=== PATIENT | female | born 1990 | race Two or more races ===

== ENCOUNTER 2019-03-22 19:27 | Emergency (ER) | payer OTHER ==
[2019-03-22] MEDS ORDERED: HYDROCODONE/ACETAMINOPHEN 5-325 MG TABLET PO ONE (20:07)
--- NOTE | 2019-03-22 20:08 | ER Document Report ---
ED Medical Screen (RME) - General Chief Complaint: Other Stated Complaint: BODY PAIN Time Seen by Provider: 03/22/19 19:59 Notes: Patient is a 28-year-old female with a history of multiple sclerosis who presents to the emergency department with a chief complaint of an MS flare. Patient reports having pain to the right side of her body. Patient states she has been off her MS injection since November as she did lose her insurance. Patient states she was also on hydrocodone and other medications for her discomfort but has been out of them as well. Patient denies fever. 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 Patient also reports a history of fibromyalgia. Patient denies nausea, vomiting or diarrhea. Patient reports she has had the MS flare for about 2 to 3 days. Patient reports she has been taking ibuprofen for this with minimal relief. TRAVEL OUTSIDE OF THE [place] IN LAST 30 DAYS: No - Related Data Allergies/Adverse Reactions: Penicillins Adverse Reaction (Verified 03/22/19 19:34) Physical Exam - Vital signs Vitals: Temp Pulse Resp BP Pulse Ox 98.1 F 68 18 127/69 H 98 03/22/19 19:37 03/22/19 19:37 03/22/19 19:37 03/22/19 19:37 03/22/19 19:37 Interpretation: Normal Course - Re-evaluation Re-evalutation: 03/22/19 20:07 I have greeted and performed a rapid initial assessment of this patient. A comprehensive ED assessment and evaluation of the patient, analysis of test results and completion of the medical decision making process will be conducted by additional ED providers. - Vital Signs Vital signs: Temp Pulse Resp BP Pulse Ox 98.1 F 68 18 127/69 H 98 03/22/19 19:37 03/22/19 19:37 03/22/19 19:37 03/22/19 19:37 03/22/19 19:37
[2019-03-22 20:34] LABS: ABSOLUTE EOSINOPHILS # (AUTO) 0.1 10^3/uL (0.0-0.6); ABSOLUTE LYMPHOCYTES (AUTO) 2.4 10^3/uL (0.5-4.7); ABSOLUTE MONOCYTES (AUTO) 0.5 10^3/uL (0.1-1.4); ABSOLUTE NEUT (AUTO) 3.4 10^3/uL (1.7-8.2); BASOPHILS % (AUTO) 0.3 % (0-2); EOSINOPHILS % (AUTO) 2.3 % (0-6); HEMATOCRIT 38.1 % (36.0-47.0); HEMOGLOBIN 13.1 g/dL (12.0-15.5); LYMPHOCYTES % (AUTO) 37.2 % (13-45); MEAN CORPUSCULAR HEMOGLOBIN 31.1 pg (27.0-33.4); MEAN CORPUSCULAR HGB CONC 34.3 g/dL (32.0-36.0); MEAN CORPUSCULAR VOLUME 91 fl (80-97); MONOCYTES % (AUTO) 7.1 % (3-13); PLATELET COUNT 176 10^3/uL (150-450); RED CELL DISTRIBUTION WIDTH 14.1 % (11.5-14.0); SEGMENTED NEUTROPHILS % (AUTO) 53.1 % (42-78); TOTAL CELLS COUNTED % (AUTO) 100 %; WHITE BLOOD COUNT 6.3 10^3/uL (4.0-10.5)
[2019-03-22 20:39] LABS: APPEARANCE,URINE SLIGHTLY-CLOUDY; BILIRUBIN,URINE NEGATIVE (NEGATIVE); COLOR,URINE YELLOW; GLUCOSE, URINE NEGATIVE (NEGATIVE); KETONES,URINE NEGATIVE (NEGATIVE); LEUKOCYTE ESTERASE,URINE NEGATIVE (NEGATIVE); NITRITE,URINE NEGATIVE (NEGATIVE); PROTEIN,URINE NEGATIVE (NEGATIVE); URINE SPECIFIC GRAVITY 1.017; UROBILINOGEN,URINE NEGATIVE mg/dL (<2.0)
[2019-03-22 20:48] LABS: ALBUMIN 4.7 g/dL (3.5-5.0); ALKALINE PHOSPHATASE 52 U/L (38-126); ANION GAP 8 (5-19); ASPARTATE AMINO TRANSFERASE 19 U/L (14-36); BILIRUBIN,DIRECT 0.3 mg/dL (0.0-0.4); BILIRUBIN,TOTAL 0.4 mg/dL (0.2-1.3); BLOOD UREA NITROGEN 9 mg/dL (7-20); CALCIUM 9.5 mg/dL (8.4-10.2); CARBON DIOXIDE 28 mmol/L (22-30); CHLORIDE 105 mmol/L (98-107); TOTAL PROTEIN 7.4 g/dL (6.3-8.2)
[2019-03-22] MEDS ORDERED: METHYLPREDNISOLONE INJ 125 MG/2 ML SDV IV ONE (20:51)
[2019-03-22 20:55] LABS: GLUCOSE 63 mg/dL (75-110)
--- NOTE | 2019-03-22 20:57 | ER Document Report ---
ED General - General Chief Complaint: Other Stated Complaint: BODY PAIN Time Seen by Provider: 03/22/19 19:59 Notes: Patient is a 28-year-old female with a history of multiple sclerosis that comes emergency department chief complaint of possible MS flare. She states she has general pain on the right side of her body starting in her neck, also in her shoulder, also on her right hand/wrist. She denies numbness or weakness. She states she has had some intermittent tiredness and lightheadedness. She states she also has fibromyalgia and this is "confusing" and she cannot tell if this is MS or fibromyalgia. She is to be on Copaxin infusions in [place], states she is obtaining insurance and has not seen neurology here yet. She denies headache, visual changes, focal numbness or weakness. She is on no current prescription medications. She also reports a medical history of small pituitary tumor treated with bromocriptine. TRAVEL OUTSIDE OF THE [place] IN LAST 30 DAYS: No - Related Data Allergies/Adverse Reactions: Penicillins Adverse Reaction (Verified 03/22/19 19:34) Past Medical History - General Information source: Patient - Social History Smoking Status: Never Smoker Frequency of alcohol use: Occasional Drug Abuse: Marijuana Lives with: Spouse/Significant other Family History: Reviewed & Not Pertinent Patient has suicidal ideation: No Patient has homicidal ideation: No Renal/ Medical History: Denies: Hx Peritoneal Dialysis Musculoskeletal Medical History: Reports Hx Fibromyalgia, Reports Hx Multiple Sclerosis - Immunizations Immunizations up to date: Yes Hx Diphtheria, Pertussis, Tetanus Vaccination: Yes Review of Systems - Review of Systems Constitutional: See HPI EENT: No symptoms reported Cardiovascular: No symptoms reported Respiratory: No symptoms reported Gastrointestinal: No symptoms reported Genitourinary: No symptoms reported Female Genitourinary: No symptoms reported Musculoskeletal: See HPI Skin: No symptoms reported Hematologic/Lymphatic: No symptoms reported Neurological/Psychological: See HPI Physical Exam - Vital signs Vitals: Temp Pulse Resp BP Pulse Ox 98.1 F 68 18 127/69 H 98 03/22/19 19:37 03/22/19 19:37 03/22/19 19:37 03/22/19 19:37 03/22/19 19:37 - Notes Notes: GENERAL: Alert, interacts well. No acute distress. HEAD: Normocephalic, atraumatic. EYES: Pupils equal, round, and reactive to light. Extraocular movements intact. ENT: Oral mucosa moist, tongue midline. Oropharynx unremarkable. Airway patent. LUNGS: Clear to auscultation bilaterally, no wheezes, rales, or rhonchi. No respiratory distress. HEART: Regular rate and rhythm. No murmur ABDOMEN: Soft, non-tender. Non-distended. Bowel sounds present in all 4 quadrants. GENITOURINARY: Deferred EXTREMITIES: Moves all 4 extremities spontaneously. No edema, normal radial and dorsalis pedis pulses bilaterally. No cyanosis. BACK: no cervical, thoracic, lumbar midline tenderness. No saddle anesthesia, normal distal neurovascular exam. Moves all extremities in full range of motion. NEUROLOGICAL: Alert and oriented x3. Normal speech. Cranial nerves II through XII grossly intact. PSYCH: Normal affect, normal mood. SKIN: Warm, dry, normal turgor. No rashes or lesions noted. Course - Re-evaluation Re-evalutation: Patient is nontoxic in appearance. She does complain of some pain when she moves her right arm, right shoulder, and moves generally, however she does not appear to have any pain and she has no swelling, pain on palpation, or range of motion deficits. She has no neurological deficits on exam and no visual deficits. She is smiling and talkative. Vital signs unremarkable. CBC, chemistry unremarkable except borderline hyperglycemia. Urinalysis un remarkable, negative. ESR is not significantly elevated. Discussed with patient. Discussed her evaluation, options. Decision was made to treat her with steroids for her multiple sclerosis symptoms, possibly a mild flare, and she is asking for a referral to neurology, this was provided. I discussed follow-up and return precautions. Patient states understanding and agreement. Stable time of discharge. - Vital Signs Vital signs: Temp Pulse Resp BP Pulse Ox 98.4 F 59 L 16 117/74 100 03/22/19 23:08 03/22/19 23:08 03/22/19 23:08 03/22/19 23:08 03/22/19 23:08 - Laboratory Result Diagrams: 03/22/19 20:10 03/22/19 20:10 Laboratory results interpreted by me: 03/22/19 03/22/19 20:10 20:10 RDW 14.1 H Glucose 63 L Discharge - Discharge Clinical Impression: Multiple sclerosis, Right arm pain, Body aches Right shoulder pain Qualifiers: Chronicity: acute Qualified Code(s): M25.511 - Pain in right shoulder Condition: Stable Disposition: HOME, SELF-CARE Additional Instructions: Your evaluation and laboratory work-up are reassuring. Take prednisone taper as prescribed for suspected multiple sclerosis invol vement, follow-up with the neurology for additional evaluation and management. Return if you worsen including visual changes, severe worsening pain, difficulty breathing, chest pain, fever, or any other concerning symptoms. Formerly [facility] [address] [place], [place] [id number] Prescriptions: Prednisone [Deltasone 10 mg Tablet] 10 mg PO ASDIR PRN #21 tablet PRN Reason:
[2019-03-22] MEDS ORDERED: ONDANSETRON HCL INJ/PF 4 MG/2 ML SDV IV ONE (22:45)
[2019-03-22] MEDS ORDERED: MORPHINE SULFATE 10 MG/ML INJ IV ONE (22:45)
[2019-03-22] MEDS ORDERED: HYDROCODONE/ACETAMINOPHEN 5-325 MG (6 TAB/ER DISP) PO PRN (22:45)
[2019-03-22 23:11] VITALS: BP 117/74
== END 2019-03-22 23:12 | disposition home or self-care (01) ==
LOC: ER 19:27
DX: G35 Multiple sclerosis (principal); M79.601 Pain in right arm; M79.10 Myalgia, unspecified site; M25.511 Pain in right shoulder; Z88.0 Allergy status to penicillin
CPT/HCPCS: 36415; 85025; 85652; 81025; 80053; 81001; J2930; J2270; J2405

== ENCOUNTER 2019-11-11 06:50 | Emergency (ER) | payer OTHER ==
[2019-11-11 08:47] LABS: ALKALINE PHOSPHATASE 61 U/L (38-126); ANION GAP 6 (5-19); ASPARTATE AMINO TRANSFERASE 19 U/L (14-36); BILIRUBIN,DIRECT 0.2 mg/dL (0.0-0.4); BILIRUBIN,TOTAL 0.3 mg/dL (0.2-1.3); BLOOD UREA NITROGEN 11 mg/dL (7-20); CALCIUM 9.2 mg/dL (8.4-10.2); CARBON DIOXIDE 24 mmol/L (22-30); CHLORIDE 108 mmol/L (98-107); GLUCOSE 89 mg/dL (75-110); POTASSIUM 4.1 mmol/L (3.6-5.0); TOTAL PROTEIN 6.6 g/dL (6.3-8.2)
[2019-11-11 08:50] LABS: ABSOLUTE EOSINOPHILS # (AUTO) 0.1 10^3/uL (0.0-0.6); ABSOLUTE LYMPHOCYTES (AUTO) 1.4 10^3/uL (0.5-4.7); ABSOLUTE MONOCYTES (AUTO) 0.6 10^3/uL (0.1-1.4); BASOPHILS % (AUTO) 0.2 % (0-2); EOSINOPHILS % (AUTO) 1.5 % (0-6); HEMATOCRIT 37.2 % (36.0-47.0); LYMPHOCYTES % (AUTO) 15.3 % (13-45); MEAN CORPUSCULAR HEMOGLOBIN 31.4 pg (27.0-33.4); MEAN CORPUSCULAR HGB CONC 34.8 g/dL (32.0-36.0); MEAN CORPUSCULAR VOLUME 90 fl (80-97); MONOCYTES % (AUTO) 6.2 % (3-13); PLATELET COUNT 150 10^3/uL (150-450); RED BLOOD COUNT 4.13 10^6/uL (3.72-5.28); RED CELL DISTRIBUTION WIDTH 13.7 % (11.5-14.0); SEGMENTED NEUTROPHILS % (AUTO) 76.8 % (42-78); TOTAL CELLS COUNTED % (AUTO) 100 %; WHITE BLOOD COUNT 9.1 10^3/uL (4.0-10.5)
[2019-11-11 08:52] LABS: APPEARANCE,URINE SLIGHTLY-CLOUDY; BILIRUBIN,URINE NEGATIVE (NEGATIVE); COLOR,URINE YELLOW; GLUCOSE, URINE NEGATIVE (NEGATIVE); KETONES,URINE NEGATIVE (NEGATIVE); LEUKOCYTE ESTERASE,URINE SMALL (NEGATIVE); NITRITE,URINE NEGATIVE (NEGATIVE); PROTEIN,URINE NEGATIVE (NEGATIVE); URINE SPECIFIC GRAVITY 1.011; UROBILINOGEN,URINE NEGATIVE mg/dL (<2.0)
[2019-11-11] MEDS ORDERED: KETOROLAC TROMETHAMINE INJ/PF 30 MG/1 ML SDV IV ONE (08:59)
[2019-11-11] MEDS ORDERED: ONDANSETRON HCL INJ/PF 4 MG/2 ML SDV IV ONE (08:59)
[2019-11-11] MEDS ORDERED: CEFTRIAXONE 1 GM/D5W RTU 1 GM/50 ML RTUPB IV ONE (09:29)
--- NOTE | 2019-11-11 09:43 | RADIOLOGY REPORT (SQ) ---
EXAM DESCRIPTION: CT ABD/PELVIS NO ORAL OR IV IMAGES COMPLETED DATE/TIME: 11/11/2019 9:29 am REASON FOR STUDY: left flank pain COMPARISON: None. TECHNIQUE: CT scan of the abdomen and pelvis performed without intravenous or oral contrast. Images reviewed with lung, soft tissue, and bone windows. Reconstructed coronal and sagittal MPR images revi ewed. All images stored on PACS. All CT scanners at this facility use dose modulation, iterative reconstruction, and/or weight based d osing when appropriate to reduce radiation dose to as low as reasonably achievable (ALARA). [facility]: Dose Right [facility]: CareDose [facility]: Dose Right [facility]: Teradose 4D [facility]: Smart Pieceable RADIATION DOSE: mGy. LIMITATIONS: None. FINDINGS: LOWER CHEST: No significant findings. No nodules or infiltrates. NON-CONTRASTED LIVER, SPLEEN, ADRENALS: Evaluation limited by lack of IV contrast. No identified sign ificant masses. PANCREAS: No masses. No peripancreatic inflammatory changes. GALLBLADDER: No identified stones by CT criteria. No inflammatory changes to suggest cholecystitis. RIGHT KIDNEY AND URETER: No suspicious masses. Assessment limited by lack of IV contrast. No signif icant calcifications. No hydronephrosis or hydroureter. LEFT KIDNEY AND URETER: No suspicious masses. Assessment limited by lack of IV contrast. No signifi cant calcifications. No hydronephrosis or hydroureter. AORTA AND RETROPERITONEUM: No aneurysm. No retroperitoneal masses or adenopathy. BOWEL AND PERITONEAL CAVITY: No obvious masses or inflammatory changes. No free fluid. APPENDIX: Normal. PELVIS, BLADDER, AND ABDOMINAL WALL:No abnormal masses. No free fluid. Bladder normal. BONES: No significant findings. OTHER: No other significant finding. IMPRESSION: NO SIGNIFICANT OR ACUTE PROCESS IN THE ABDOMEN OR PELVIS. COMMENT: Quality ID # [id number]: Final reports with documentation of one or more dose reduction techniques (e.g., Automated exposure control, adjustment of the mA and/or kV according to patient size, use of iterative reconstruction technique) TECHNICAL DOCUMENTATION: JOB ID: [id number] 2010 [employer]- All Rights Reserved Reading location - IP/workstation name: [email or web address]
--- NOTE | 2019-11-11 09:56 | ER Document Report ---
Entered by BRENNON HOPPER SCRIBE 11/11/19 0823 Acting as scribe for:NATHAN GLASER DO ED General - General Chief Complaint: Low Back Pain Stated Complaint: STOMACH PAIN Time Seen by Provider: 11/11/19 07:49 Information source: Patient Notes: This 28-year-old female patient with a history of MS presents to the emergency department today with complaints of a "pinkish colored urine", left flank pain, and pain after urination. Patient states when she finishes urinating it feels like "her insides are going to come out". Patient mentions that during her annual MS screening MRI she was found to have a left sided renal cyst but they "never did anything about it". Patient states that she has vomited due to pain. Patient denies a history of kidney stones, vaginal discharge, vaginal bleeding, or respiratory symptoms. TRAVEL OUTSIDE OF THE [place] IN LAST 30 DAYS: No - Related Data Allergies/Adverse Reactions: Penicillins Adverse Reaction (Verified 03/22/19 19:34) Home Medications: Vitamins Past Medical History - General Information source: Patient - Social History Smoking Status: Never Smoker Cigarette use (# per day): No Chew tobacco use (# tins/day): No Frequency of alcohol use: Occasional Drug Abuse: None Lives with: Family Family History: Reviewed & Not Pertinent Patient has suicidal ideation: No Patient has homicidal ideation: No Musculoskeletal Medical History: Reports Hx Fibromyalgia, Reports Hx Multiple Sclerosis Surgical Hx: Negative - Immunizations Immunizations up to date: Yes Hx Diphtheria, Pertussis, Tetanus Vaccination: Yes Review of Systems - Review of Systems Constitutional: No symptoms reported EENT: No symptoms reported Cardiovascular: No symptoms reported Respiratory: denies: Cough, Short of breath Gastrointestinal: See HPI, Nausea, Vomiting Genitourinary: See HPI, Flank pain - left, Hematuria, Pain Female Genitourinary: denies: Vaginal discharge Musculoskeletal: No symptoms reported Skin: No symptoms reported Hematologic/Lymphatic: No symptoms reported Neurological/Psychological: No symptoms reported -: Yes All other systems reviewed and negative Physical Exam - Vital signs Vitals: Temp Pulse Resp BP Pulse Ox 97.7 F 61 17 116/85 99 11/11/19 06:58 11/11/19 06:58 11/11/19 06:58 11/11/19 06:58 11/11/19 06:58 - Notes Notes: Physical Exam: General: Alert, appears uncomfortable. HEENT: Normocephalic. Atraumatic. PERRL. Extraocular movements intact. Oropharynx clear. Neck: Supple. Non-tender. Respiratory: No respiratory distress. Clear and equal breath sounds bilaterally. Cardiovascular: Regular rate and rhythm. Abdominal: Normal Inspection. Non-tender. No distension. Normal Bowel Sounds. Back: Left CVA tenderness to palpation. Left lower back musculature tenderness with palpation. Extremities: Moves all four extremities. Upper extremities: Normal inspection. Normal ROM. Lower extremities: Normal inspection. No edema. Normal ROM. Neurological: Normal cognition. AAOx4. Normal speech. Psychological: Normal affect. Normal Mood. Skin: Warm. Dry. Normal color. Course - Vital Signs Vital signs: Temp Pulse Resp BP Pulse Ox 98.2 F 60 16 116/69 100 11/11/19 12:01 11/11/19 12:01 11/11/19 12:01 11/11/19 12:01 11/11/19 12:01 - Laboratory Result Diagrams: 11/11/19 07:51 11/11/19 07:51 Laboratory results interpreted by me: 11/11/19 11/11/19 07:51 08:38 Chloride 108 H Urine Blood MODERATE H Ur Leukocyte Esterase SMALL H Discharge - Discharge Clinical Impression: Multiple sclerosis UTI (urinary tract infection) Qualifiers: Urinary tract infection type: site unspecified Hematuria presence: with hematuria Qualified Code(s): N39.0 - Urinary tract infection, site not specified Condition: Good Disposition: HOME, SELF-CARE Instructions: Cephalexin ([facility]), Family Physicians / Practices, Urinary Tract Infection ([facility]) Additional Instructions: See your doctor or the referral doctor in followup. Please return here for chest pain, shortness of breath, inability to tolerate the medicine or other concerns. Prescriptions: Fluconazole [Diflucan] 100 mg PO ONCE PRN #2 tablet PRN Reason: Cephalexin Monohydrate [Keflex 500 mg Capsule] 500 mg PO TID 5 Days #15 capsule I personally performed the services described in the documentation, reviewed and edited the documentation which was dictated to the scribe in my presence, and it accurately records my words and actions.
[2019-11-11 12:03] VITALS: BP 116/69
== END 2019-11-11 12:01 | disposition home or self-care (01) ==
LOC: ER 06:50
DX: N39.0 Urinary tract infection, site not specified (principal); G35 Multiple sclerosis; M54.5 Low back pain; R10.9 Unspecified abdominal pain; R11.10 Vomiting, unspecified; Z88.0 Allergy status to penicillin
CPT/HCPCS: 99284; 96375; 96365; 36415; 85025; 81025; 80053; 81001; 74176; J1885; J2405; J0696